=== PATIENT | male | born 1945 | race Caucasian/White ===

== ENCOUNTER → 2016-11-19 | Outpatient (CLI) | payer OTHER ==
--- NOTE | 2016-11-19 16:02 | DIAGNOSTIC IMAGING REPORT ---
KUB CLINICAL HISTORY: Nephrolithiasis. COMPARISON STUDY: None. FINDINGS: The bowel gas pattern is normal. No definite urinary calculi are identified. A few pelvic densities likely reflect phleboliths or vascular calcifications. Renal shadows are partially obscured by stool. IMPRESSION: 1. No definite urinary calculi. 2. A few pelvic calcifications which are indeterminate although statistically reflect phleboliths or vascular calcifications. 3. Partially obscured renal shadows due to stool. Electronically signed by: Jamarcus Tierney M.D. 11/19/2016 4:00 PM Dictated Date/Time: 11/19/2016 3:58 PM
== END | disposition home or self-care (01) ==
LOC: C.RAD 15:08
PROVIDERS: ATTEND Nurse Practitioner Family
DX: N20.0 Calculus of kidney (principal); R93.5 Abnormal findings on diagnostic imaging of other abdominal regions, including retroperitoneum